=== PATIENT | male | born 1985 ===

== ENCOUNTER 2017-11-01 08:59 | Emergency (ER) | payer OTHER ==
[~2017-11-01] VITALS: Ht 185.4 cm; Wt 133.8 kg
[2017-11-01] MEDS ORDERED: LEVSIN/SL0.125 MG PO (13:14)
[2017-11-01] MEDS ORDERED: KETO10TA2 PO (13:14)
== END 2017-11-01 13:30 | disposition home or self-care (01) ==
LOC: ER 08:59
DX: K80.20 Calculus of gallbladder without cholecystitis without obstruction (principal); R10.11 Right upper quadrant pain